=== PATIENT | male | born 2000 | race African-American/Black ===

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

== ENCOUNTER → 2024-04-03 | Outpatient (CLI) | payer MEDICAID | LOC: COL.RAD 16:16 | DX: M25.562 Pain in left knee (principal) ==